=== PATIENT | female | born 1990 | race Caucasian/White ===

== ENCOUNTER 2020-04-06 13:16 | Emergency (ER) | payer MEDICAID, SELFPAY ==
[2020-04-06 13:17] VITALS: BP 138/76; PULSE 86; RESP 16; TEMP 37.1; O2SAT 97; BMI 26.6
[2020-04-06 13:26] VITALS: BP 138/76; PULSE 84; RESP 16; O2SAT 98
--- NOTE | 2020-04-06 13:36 | CT_ITS ---
WS: [id number] CT HEAD NONCONTRAST HISTORY: headache, weakness TECHNIQUE: Contiguous axial imaging performed through the brain in 2.5 mm imaging. Bone and soft tiss ue windows. Sagittal and coronal reformats reviewed. All CT scans at [facility] use at ast one of these dose optimization techniques: automated exposure control; mA and/or kV adjustment pe r patient size (includes targeted exams where dose is matched to clinical indication); or iterative r econstruction. DLP: 1167.36 mGy.cm COMPARISON: None available. No acute intracranial hemorrhage, midline shift or mass effect. No atrophy or prior infarcts or herniation. Nonspecific calcification in the LEFT temporal lobe may be from prior infection. Ventricles: Normal size with no hydrocephalus. Paranasal sinuses: Small amount of fluid in the sphenoid sinuses. Mastoid air cells: Well pneumatized. Calvarium and scalp: Skull is intact with no soft tissue edema or swelling. CT/CT head wo con* [id number] IMPRESSION: Mild sphenoid sinusitis. Otherwise negative for acute process.
--- NOTE | 2020-04-06 13:36 | ECG_ITS ---
[facility] Test Date: 2020-04-06 Pat Name: Niurka Pham Department: Room: Gender: Female Museum Informatics Specialist: : 1990 Requested By: Shaista Murillo Order Number: [id number] Alvaro MD: Joseph Baker M.D. Measurements Intervals [place] Rate: 78 P: 61 SC: 180 QRS: 10 QRSD: 112 T: 32 QT: 355 QTc: 406 Interpretive Statements SINUS RHYTHM INCOMPLETE RIGHT BUNDLE BRANCH BLOCK [90+ ms QRS DURATION, TERMINAL R IN V1/V2, 40+ ms S IN I/aVL/V4/V5/V6] No previous ECG available for comparison Electronically Signed On 04-06-2020 16:03:40 CDT by Joseph Baker M.D. [id number] f
--- NOTE | 2020-04-06 13:37 | W.ED.DIZZY ---
HPI - Dizziness General: Chief Complaint: Dizziness Stated Complaint: NUMBNESS IN L ARM/ WEAKNESS IN LEGS Time Seen by Provider: 04/06/20 13:20 History of Present Illness: HPI Narrative: This patient is a 29-year-old female who presents today with an episode of leg heaviness and numbness as well as arm and face numbness. She reports that she was just playing with her 2 young kids and suddenly felt like her legs got very heavy. She felt like they were too heavy to move. They also felt weak. She was able to walk but felt very unsteady. At the same time she developed some numbness and tingling in her left arm. She also had numbness and tingling on her face and neck area. She said she felt a little confused and she felt like when people were talking to her they were talking too fast and that what she was hearing and seeing did not match up. She denies seeing double. She denies actual dizziness or vertiginous symptoms. She does now have a headache which started after the symptoms resolved. She is seeing some floaters in her eyes. She is right-handed. Her symptoms started about 30 minutes ago and lasted about 1 hour ago and lasted about 30 minutes. They are gone now other than her headache. She denies any difficulty with speech or swallowing. She tried eating something to see if her blood sugar was just low. She said she had an episode about 8 months ago with the same type of leg weakness. She did not have the other symptoms. That episode lasted about 15 minutes and went away. She did not seek medical treatment for it. She is generally healthy. She had pulmonary stenosis as a child but thinks that her mother was told she would grow out of it. She has never seen an adult estimator jewelry regarding this. MD elicited complaint: difficulty walking Onset (ago): hour(s) (1) Timing: sudden onset Severity: moderate Description: other (Like things she was seeing or moving faster than think she could hear) History of similar symptoms: Yes Exacerbating factors: nothing Relieving factors: nothing Associated symptoms: Reports headache(s); Denies chest pain, diaphoresis, nausea or vomiting Review of Systems General: Reports: 10 or more systems reviewed and unremarkable except in HPI and below Const: Denies: diaphoresis Eyes: Denies: change in vision ENMT: Denies: odynophagia Card: Denies: chest pain Resp: Denies: dyspnea, productive cough or non-productive cough GI: Denies: nausea or vomiting : Denies: flank pain or difficulty voiding Musc: Denies: neck pain or back pain Skin/Breast: Denies: rash Neuro: Reports: headache(s) Ector/Lymph: Denies: easy bruising or easy bleeding [facility] Female Reproductive History: Date of last menstrual period: 03/30/20 Physical Exam Const: COMMON NORMALS: no acute distress, patient oriented x3, no limitations and alert GENERAL APPEARANCE: cooperative and comfortable HENMT: HEAD & SCALP: normal to inspection FACE & SINUS: normal facial exam Eye: GENERAL EYE: appearance normal, both eyes and all related structures Neck/C-Spine: COMMON NORMALS: supple, no meningeal signs and no JVD Chest: COMMONS NORMALS: normal inspection of the chest Resp: COMMON NORMALS: normal respiratory effort, No use of accessory muscles and clear to auscultation bilaterally AUSCULTATION: clear to auscultation bilaterally Cardio: COMMON NORMALS: no JVD, regular rate, regular rhythm and No murmurs present (Cardio) RATE: regular rate RHYTHM: regular rhythm GI: COMMON NORMALS: Normal to inspection, nondistended, normoactive bowel sounds present, Soft to palpation and non-tender INSPECTION: Yes normal to inspection AUSCULTATION: Yes normoactive bowel sounds PALPATION: Yes Soft to palpation Back/Pelvis: COMMON NORMALS: thoracic and lumbar spine normal to inspection Extremity: COMMON NORMALS: normal to inspection Neuro: COMMON NORMALS: patient oriented x3, moves all extremities, no focal motor deficits, no sensory deficits noted, deep tendon reflexes 2+ bilaterally and gait normal SENSORIUM/ORIENTATION: Yes alert MENINGEAL SIGNS: Yes no meningeal signs CRANIAL NERVES: Yes CN normal except as noted SPEECH: speech normal GAIT: Yes Normal gait present SENSORY EXAM: Yes extremities (proximal left upper arm slightly decreased) Psych: COMMON NORMALS: mental status grossly normal, cooperative and normal affect Skin: COMMON NORMALS: no rashes or lesions noted and turgor normal GENERAL SKIN EXAM: no rashes or lesions noted and turgor normal Course ED course: Patient symptoms resolved in the ED. We discussed some of the less likely diagnoses including complex migraine, atypical seizures, multiple sclerosis. I reassured her that I do not see anything at all that would suggest these diagnoses however I definitely want her to see a neurologist to get a more thorough work-up and evaluation. She understands and will comply. She will return if she has any worsening of her symptoms. Vital Signs: Vital signs: Vital Signs Temperature 97.6 F 04/06/20 16:03 Pulse Rate 52 L 04/06/20 16:03 Respiratory Rate 18 04/06/20 16:03 Blood Pressure 116/67 04/06/20 16:03 Pulse Oximetry 99 04/06/20 16:03 MDM - Dizziness Lab Data: Labs: Lab Results 04/06/20 04/06/20 04/06/20 Range/Units 13:43 13:43 14:09 WBC 10.8 H (4.0-10.0) 10^3/ uL RBC 4.61 (4.1-5.3) 10^6/u L Hgb 12.8 (11.5-15.3) g/dL Hct 40.5 (37.0-47.0) % MCV 87.9 (81-99) fL MCH 27.8 L (28.0-34.0) pg MCHC 31.6 (30.0-36.0) g/dL RDW 15.3 H (12.1-15.1) % Plt Count 283 (130-400) 10^3/c mm MPV 10.6 H (7.4-10.4) fL Neut % (Auto) 74.9 % Lymph % (Auto) 18.3 % [place]in[place] % (Auto) 5.3 % Eos % (Auto) 1.1 % Baso % (Auto) 0.2 % Neut # (Auto) 8.08 H (1.8-7.7) 10^3/u L Lymph # (Auto) 2.0 (0.8-4.8) 10^3/u L [place]in[place] # (Auto) 0.6 (0.2-0.9) 10^3/u L Eos # (Auto) 0.1 (0.0-0.8) 10^3/u L Baso # (Auto) 0.0 (0.0-0.1) 10^3/u L Nucleated RBC % (a uto) 0 % Nucleated RBCs # 0.0 /100WBC Sodium (136-145) mmol/L Potassium (3.5-5.1) mmol/L Chloride (98-107) mmol/L Carbon Dioxide (22-29) mmol/L Anion Gap (5-19) BUN (6-20) mg/dL Creatinine (0.5-0.9) mg/dL GFR Calculation (90-130) mL/min Glucose (65-115) mg/dL Calculated Osmolal ity (285-295) mOsm/k g Calcium (8.5-10.5) mg/dL Magnesium (1.7-2.3) mg/dL Total Bilirubin (0.15-1.2) mg/dL AST (0-32) U/L ALT (0-33) U/L Alkaline Phosphata se (35-105) IU/L Total Protein (6.6-8.7) g/dL Albumin (3.5-5.2) g/dL Globulin (1.3-4.6) g/dL TSH (0.27-4.20) uIU/ mL HCG, Qual Negative (Negative) Urine Color Straw (Yellow) Urine Appearance Clear (CLEAR) Urine pH 6 (5-7) Ur Specific Gravit y 1.005 (1.005-1.030) Urine Protein Neg (Negative) Urine Glucose (UA) Norm (Normal) Urine Ketones Negative (Negative) Urine Blood Neg (Negative) Urine Nitrate Negative (Negative) Urine Bilirubin Neg (NEGATIVE) Urine Urobilinogen Norm (Negative) mg/dL Ur Leukocyte Nel ase Negative (Negative) 04/06/20 Range/Units 14:09 WBC (4.0-10.0) 10^3/ uL RBC (4.1-5.3) 10^6/u L Hgb (11.5-15.3) g/dL Hct (37.0-47.0) % MCV (81-99) fL MCH (28.0-34.0) pg MCHC (30.0-36.0) g/dL RDW (12.1-15.1) % Plt Count (130-400) 10^3/c mm MPV (7.4-10.4) fL Neut % (Auto) % Lymph % (Auto) % Seminole % (Auto) % Eos % (Auto) % Baso % (Auto) % Neut # (Auto) (1.8-7.7) 10^3/u L Lymph # (Auto) (0.8-4.8) 10^3/u L Seminole # (Auto) (0.2-0.9) 10^3/u L Eos # (Auto) (0.0-0.8) 10^3/u L Baso # (Auto) (0.0-0.1) 10^3/u L Nucleated RBC % (a uto) % Nucleated RBCs # /100WBC Sodium 141 (136-145) mmol/L Potassium 4.1 (3.5-5.1) mmol/L Chloride 108 H (98-107) mmol/L Carbon Dioxide 26 (22-29) mmol/L Anion Gap 11.1 (5-19) BUN 7 (6-20) mg/dL Creatinine 0.7 (0.5-0.9) mg/dL GFR Calculation 98.9 (90-130) mL/min Glucose 98 (65-115) mg/dL Calculated Osmolal ity 288 (285-295) mOsm/k g Calcium 9.0 (8.5-10.5) mg/dL Magnesium 2.2 (1.7-2.3) mg/dL Total Bilirubin 0.2 (0.15-1.2) mg/dL AST 14 (0-32) U/L ALT 9 (0-33) U/L Alkaline Phosphata se 72 (35-105) IU/L Total Protein 7.1 (6.6-8.7) g/dL Albumin 4.4 (3.5-5.2) g/dL Globulin 2.7 (1.3-4.6) g/dL TSH 2.42 (0.27-4.20) uIU/ mL HCG, Qual (Negative) Urine Color (Yellow) Urine Appearance (CLEAR) Urine pH (5-7) Ur Specific Gravit y (1.005-1.030) Urine Protein (Negative) Urine Glucose (UA) (Normal) Urine Ketones (Negative) Urine Blood (Negative) Urine Nitrate (Negative) Urine Bilirubin (NEGATIVE) Urine Urobilinogen (Negative) mg/dL Ur Leukocyte Nel ase (Negative) Discharge Plan Discharge Patient Disposition: Home Clinical Impression: Weakness of both legs, Numbness and tingling in left arm Headache Qualifiers: Headache type: unspecified Headache chronicity pattern: acute headache Intractability: not intractable Qualified Code(s): R51 - Headache Condition: Stable Prescriptions: No Action No Known Home Medications RF: 0 Discharge Orders: Discharge Order (Routine); Ordered 04/06/20 Ordered By: Shaista Perdue Referrals: Mandi Clark MD [Physician] - 3 weeks (eval episodes of leg weakness and confusion) Kaylene Rocha, BOLTING MACHINE OPERATOR-C [Primary Care Provider] - Discharge Diet: Usual diet Discharge Activity: Resume usual activity Patient Instructions: Headache - Migraine (Adult) Activity Restrictions/Additional Instructions: Resume normal activities but use caution in any activity that would put you or or those around you in danger if you were to have an episode like you had today. Examples of this might be driving. Follow-up with a neurologist within the next several weeks for further and more detailed evaluation of your symptoms. Return to the ED if symptoms occur and do not resolve within 15 or 30 minutes. Discharge Date/Time: 04/06/20 16:17 Coding Level of Care Code ED Graduate Assistant for Zain Fwroya Exam Comprehensive
[2020-04-06 13:44] LABS: Add Urine Microscopic? NO
[2020-04-06 13:50] LABS: Bilirubin Urine Neg (NEGATIVE); Blood Urine Neg (Negative); Glucose Urine UA Norm (Normal); Ketones Urine Negative (Negative); Leukocyte Esterase Urine Negative (Negative); Nitrate Urine Negative (Negative); Protein Urine Neg (Negative); Specific Gravity, Urine 1.005 (1.005-1.030); Urine Appearance Clear (CLEAR); Urine Color Straw (Yellow); Urobilinogen Urine Norm (Negative); pH Urine 6 (5-7)
[2020-04-06 13:52] LABS: HCG Qualitative Urine. Negative (Negative)
[2020-04-06 14:12] VITALS: BP 128/63; PULSE 75; RESP 18; TEMP 37; O2SAT 98
[2020-04-06 14:14] LABS: Basophils % 0.2 %; Eosinophils # 0.1 10^3/uL (0.0-0.8); Eosinophils % 1.1 %; Hematocrit 40.5 % (37.0-47.0); Hemoglobin 12.8 g/dL (11.5-15.3); Lymphocytes % 18.3 %; Mean Corpuscular HGB Conc 31.6 g/dL (30.0-36.0); Mean Corpuscular Hemoglobin 27.8 pg (28.0-34.0); Mean Corpuscular Volume 87.9 fL (81-99); Mean Platelet Volume 10.6 fL (7.4-10.4); Monocytes # 0.6 10^3/uL (0.2-0.9); Monocytes % 5.3 %; Neutrophils # 8.08 10^3/uL (1.8-7.7); Neutrophils % 74.9 %; Nucleated Red Blood Cells % 0 %; Platelet Count 283 10^3/cmm (130-400); Red Blood Count 4.61 10^6/uL (4.1-5.3); Red Cell Distribution Width 15.3 % (12.1-15.1); White Blood Count 10.8 10^3/uL (4.0-10.0)
[2020-04-06 14:49] LABS: Alanine Aminotransferase 9 U/L (0-33); Albumin Level 4.4 g/dL (3.5-5.2); Alkaline Phosphatase 72 IU/L (35-105); Anion Gap 11.1 (5-19); Aspartate Amino Transferase 14 U/L (0-32); Blood Urea Nitrogen 7 mg/dL (6-20); Carbon Dioxide 26 mmol/L (22-29); Chloride 108 mmol/L (98-107); Creatinine Clr Calc Pharmacy 126.9315; Globulin 2.7 g/dL (1.3-4.6); Glomerular Filtration Rate 98.9 mL/min (90-130); Glucose 98 mg/dL (65-115); Magnesium 2.2 mg/dL (1.7-2.3); Osmolality Calculated 288 mOsm/kg (285-295); Potassium 4.1 mmol/L (3.5-5.1); Sodium 141 mmol/L (136-145); Thyroid Stimulating Hormone 2.42 uIU/mL (0.27-4.20); Total Bilirubin 0.2 mg/dL (0.15-1.2); Total Protein 7.1 g/dL (6.6-8.7)
[2020-04-06 16:03] VITALS: BP 116/67; PULSE 52; RESP 18; TEMP 36.4; O2SAT 99
--- NOTE | 2020-04-07 10:47 | DCPLANNER ---
stallion manager had message to schedule a follow up appointment for patient with Dr. Clark. stallion manager called the office of Dr. Clark, spoke with Corina, gave clinic patients information. stallion manager was told that patients information would be printed and reviewed. Clinic will call patient with appointment information.
--- NOTE | 2020-04-12 07:46 | DCPLANNER ---
Patient has a follow up appointment scheduled for , May 04, 2020 at 2:[address] Clark. Clinic will call patient with appointment information.
--- NOTE | 2020-05-05 13:40 | DCPLANNER ---
Patient had a follow up appointment scheduled for 05.04.[address] Clark - patient was rescheduled for a later date.
== END 2020-04-06 16:17 | disposition home or self-care (01) ==
PROVIDERS: Emergency Provider Emergency Medicine; PCP Nurse Practitioner
DX: R51 Headache (principal); R20.0 Anesthesia of skin; R53.1 Weakness
CPT/HCPCS: 12345; 36415; 70450; 80053; 81003; 81025; 83735; 84443; 85025; 93005; 99283

== ENCOUNTER → 2020-10-13 15:31 | Outpatient (BNVA) | payer MEDICAID, SELFPAY | PROVIDERS: PCP Nurse Practitioner; Visit Provider Family Medicine | DX: N92.6 Irregular menstruation, unspecified (principal); N93.9 Abnormal uterine and vaginal bleeding, unspecified | CPT/HCPCS: 81000; 81025 ==

== ENCOUNTER → 2020-10-18 14:55 | Outpatient (BNVA) | payer MEDICAID, SELFPAY | PROVIDERS: PCP Nurse Practitioner; Visit Provider Family Medicine | DX: N93.9 Abnormal uterine and vaginal bleeding, unspecified (principal); Z78.9 Other specified health status | CPT/HCPCS: 81025; 84702; 88175 ==

== ENCOUNTER → 2020-12-14 15:44 | Outpatient (BNVA) | payer MEDICAID, SELFPAY | PROVIDERS: PCP Nurse Practitioner Family; Visit Provider Nurse Practitioner Family | DX: Z11.3 Encounter for screening for infections with a predominantly sexual mode of transmission (principal) | CPT/HCPCS: 86592; 87491; 87530; 87591; 87661; 87806 ==

== ENCOUNTER → 2021-05-22 10:55 | Outpatient (BNVA) | payer MEDICAID, SELFPAY | PROVIDERS: PCP Nurse Practitioner Family; Visit Provider Nurse Practitioner Family | DX: E53.8 Deficiency of other specified B group vitamins (principal) | CPT/HCPCS: 82607 ==

== ENCOUNTER → 2021-07-18 11:27 | Outpatient (BNVA) | payer MEDICAID, SELFPAY | PROVIDERS: PCP Nurse Practitioner Family; Visit Provider Nurse Practitioner Family | DX: R20.2 Paresthesia of skin (principal) | CPT/HCPCS: 80053; 82306; 82607; 85025 ==

== ENCOUNTER → 2021-10-01 10:23 | Outpatient (BNVA) | payer MEDICAID, SELFPAY | PROVIDERS: PCP Nurse Practitioner Family; Visit Provider Nurse Practitioner Family | DX: R20.0 Anesthesia of skin (principal); R20.2 Paresthesia of skin; E53.8 Deficiency of other specified B group vitamins; E55.9 Vitamin D deficiency, unspecified; F41.9 Anxiety disorder, unspecified; F32.A Depression, unspecified | CPT/HCPCS: 80053; 82306; 82607; 85025 ==

== ENCOUNTER 2021-10-02 15:16 | Outpatient (CLI) | payer MEDICAID, SELFPAY ==
--- NOTE | 2021-10-02 15:32 | MR_ITS ---
WS: [id number] MRI BRAIN WITHOUT CONTRAST HISTORY: G43.109 - Migraine with aura, not intractable. COMPARISON: Noncontrast CT head 04/06/2020 TECHNIQUE: Diffusion imaging, multiplanar T1, T2 and FLAIR imaging obtained. No evidence for acute infarct or hemorrhage. Dozier-white matter differentiation is normal. Single tiny focus of increased signal in the RIGHT mcelroy radiata. Nonspecific and may be related to prior ische noah event. There are no large territory infarcts. No hemorrhage. No remote or acute infarcts are volume loss. Ventricles and extra-axial spaces are normal. No inferior displacement of cerebellar tonsils. The sella turcica and pituitary gland are unremarkabl e. Dural venous sinuses and northway of [place] demonstrate no abnormality on this unenhanced studies. Flow voids in the [place] are normal. Paranasal sinuses: Small amount of fluid in the RIGHT sphenoid sinus. Mastoid air cells: Normal. Calvarium and scalp: Intact. MR/MR head wo con* [id number] IMPRESSION: 1. No acute infarct or significant signal abnormalities within the brain. 2. No hemorrhage. 3. Small mucous retention cyst in the RIGHT sphenoid sinus.
== END 2021-10-02 15:17 | disposition home or self-care (01) ==
PROVIDERS: PCP Nurse Practitioner Family; Visit Provider Nurse Practitioner Family
DX: G43.109 Migraine with aura, not intractable, without status migrainosus (principal)
CPT/HCPCS: 70551; 80053; 80061; 82306; 82607; 83735; 84443; 85025

== ENCOUNTER → 2021-12-13 11:24 | Outpatient (BNVA) | payer MEDICAID, SELFPAY | PROVIDERS: PCP Nurse Practitioner Family; Referring Provider Nurse Practitioner Family; Visit Provider Specialist | DX: G43.119 Migraine with aura, intractable, without status migrainosus (principal); F41.9 Anxiety disorder, unspecified | CPT/HCPCS: 99204 ==

== ENCOUNTER → 2022-02-14 18:00 | Outpatient (BNVA) | payer MEDICAID, SELFPAY | PROVIDERS: PCP Nurse Practitioner Family; Visit Provider Nurse Practitioner Family | DX: F41.9 Anxiety disorder, unspecified (principal); F32.A Depression, unspecified; R20.2 Paresthesia of skin; G43.909 Migraine, unspecified, not intractable, without status migrainosus; E53.8 Deficiency of other specified B group vitamins; G43.109 Migraine with aura, not intractable, without status migrainosus; E55.9 Vitamin D deficiency, unspecified | CPT/HCPCS: 80053; 82306; 82607; 82672; 82679; 84144; 85025 ==

== ENCOUNTER 2022-04-02 21:15 | Emergency (ER) | payer MEDICAID, SELFPAY ==
[2022-04-02 21:25] VITALS: BP 126/79; PULSE 87; RESP 16; TEMP 37; O2SAT 95; BMI 29.0
--- NOTE | 2022-04-02 22:21 | XRR_ITS ---
PROCEDURE INFORMATION: Exam: XR Chest Exam date and time: 04/02/2022 10:25 PM Age: 31 years old Clinical indication: Angina; Additional info: Cp TECHNIQUE: Imaging protocol: Radiologic exam of the chest. Views: 1 view. COMPARISON: No relevant prior studies available. FINDINGS: Lungs: Unremarkable. No consolidation. Pleural spaces: Unremarkable. No pleural effusion. No pneumothorax. Heart/Mediastinum: Unremarkable. No cardiomegaly. Bones/joints: Unremarkable. XR/XR chest 1V portable [id number] IMPRESSION: No acute findings.
--- NOTE | 2022-04-02 22:22 | W.ED.HA ---
HPI - Headache General: Chief Complaint: Headache Stated Complaint: HEADACHE Time Seen by Provider: 04/02/22 21:58 Source: patient and EMS Mode of arrival: EMS Limitations: no limitations History of Present Illness: 31-year-old female who has a history of migraine with auras. States she started having a headache today it felt like a migraine states she started having some left-sided chest pain left side numbness states this was a little atypical from her typical migraine states she usually has right-sided numbness and was causing her some concern. States her headaches actually improved now 3 out of 10 she has no chest pain at this time either states that her left arm feels a little heavy but no longer has any numbness states she does have some photophobia phonophobia denies any vomiting or diarrhea. Denies any fevers or neck pain. Associated symptoms: Reports chest pain; Deny fever(s), nausea, rash or vomiting Review of Systems Const: Denies: fever(s), chills, body aches or change in appetite Eyes: Denies: blurry vision or eye discomfort ENMT: Denies: throat pain or dental pain Card: Reports: chest pain Resp: Denies: dyspnea GI: Denies: abdominal pain, nausea, vomiting or diarrhea : Denies: dysuria Musc: Denies: neck pain or back pain Skin/Breast: Denies: rash Neuro: Reports: headache(s) and numbness in extremities Psych: Denies: depression Ector/Lymph: Denies: easy bruising All/Imm: Denies: urticaria PFSH ED PFSH: Medical History Migraine with aura and without status migrainosus Family History Other CAD (coronary artery disease) Diabetes Hypertension Social History Smoking and tobacco status: never smoked Second hand smoke exposure: Yes Alcohol intake: never Caregiver/support person: Yes Lives independently: Yes Household members: spouse Marital status: Number of children: 2 service: No Current occupational status: unemployed History of recent travel: No Current gender identity: Female Female Reproductive History: Date of last menstrual period: 03/30/20 Physical Exam Const: COMMON NORMALS: no acute distress, patient oriented x3 and healthy appearing HENMT: COMMON NORMALS: normocephalic and atraumatic HEAD & SCALP: normocephalic and atraumatic Eye: COMMON NORMALS: Equal, round and reactive pupils present and EOMs intact bilaterally PUPIL: Yes Equal, round and reactive pupils present Neck/C-Spine: COMMON NORMALS: full ROM and supple Chest: COMMONS NORMALS: normal inspection of the chest and normal palpation of entire chest wall Resp: COMMON NORMALS: normal respiratory effort, No retractions, No use of accessory muscles and clear to auscultation bilaterally AUSCULTATION: clear to auscultation bilaterally Cardio: COMMON NORMALS: regular rate, regular rhythm and No murmurs present (Cardio) RATE: regular rate RHYTHM: regular rhythm GI: COMMON NORMALS: Normal to inspection, nondistended, normoactive bowel sounds present, Soft to palpation, non-tender and no masses PALPATION: Yes Soft to palpation Extremity: COMMON NORMALS: normal to inspection and full ROM Neuro: COMMON NORMALS: patient oriented x3, moves all extremities and no focal motor deficits Psych: COMMON NORMALS: mental status grossly normal, Normal thought process present and cooperative THOUGHT PROCESS: Normal thought process present Skin: COMMON NORMALS: no rashes or lesions noted and no wounds GENERAL SKIN EXAM: no rashes or lesions noted Course Vital Signs: Vital signs: Vital Signs Temperature 98.6 F 04/02/22 21:25 Pulse Rate 87 04/02/22 21:25 Respiratory Rate 16 04/02/22 21:25 Blood Pressure 126/79 04/02/22 21:25 Pulse Oximetry 95 04/02/22 21:25 Oxygen Delivery Me thod 04/02/22 21:25 MDM - Headache Medical Decision Making Patient presents with migraine with aura likely causing her paresthesias she is pain-free currently EKG x-ray are normal no signs of any cardiac abnormalities. She is stable for discharge she is to follow-up with PCP and return if worsening she understands agrees to plan. Lab Data Radiology Impressions Chest X-Ray 04/02/22 22:21 IMPRESSION: No acute findings. EKG Data EKG 1: I personally reviewed and interpreted this EKG as follows: EKG interpretation date: 04/02/22 EKG interpretation time: 21:27 Interpretation: nsr hr [address] or t wave abnormalities qrs 111 qtc 381 Discharge Plan Discharge Patient Disposition: Home Clinical Impression: Migraine with aura and without status migrainosus Condition: Stable Prescriptions: No Action acetaminophen [Tylenol] 325 mg tablet 325 mg PO QID PRN sumatriptan succinate [Imitrex] 100 mg tablet See Rx Instructions PO .COMPLEX Qty: 10 2RF Rx Instructions: take 1 tab at onset of headache; if no relief, may repeat 1 tab after at least 2 hrs; max = 2 tabs/24 hrs PO ondansetron HCl [Zofran] 4 mg tablet 4 mg PO Q6H PRN (Reason: nausea and vomiting) Qty: 20 1RF hydroxyzine HCl 25 mg tablet See Rx Instructions PO TID PRN (Reason: anxiety) Qty: 90 0RF Rx Instructions: take 1-2 tablets PO three times daily PRN; loratadine [Claritin] 10 mg tablet 10 mg PO DAILY 90 Days Qty: 90 3RF fexofenadine-pseudoephedrine [Agueda-D 12 Hour] 60-120 mg tablet extended release 12 hr 1 tab PO Q12H PRN (Reason: allergy symptoms) Qty: 20 0RF frovatriptan 2.5 mg tablet See Rx Instructions PO .COMPLEX Qty: 14 0RF Rx Instructions: take 1 tab at onset of headache; if no relief, may repeat 1 tab after at least 2 hrs; max = 2 tabs/24 hrs PO venlafaxine 75 mg capsule,extended release 24hr 75 mg PO DAILY Qty: 30 3RF cyanocobalamin (vitamin B-12) 1,000 mcg/mL solution 1,000 mcg IM .monthly 30 Days Qty: 1 11RF Discharge Orders: Discharge ED (Routine); Ordered 04/02/22 Ordered By: Waldemar Wang Referrals: Juju Curry FNP [Primary Care Provider] - Discharge Diet: Advance as tolerated Discharge Activity: Resume usual activity Patient Instructions: Headache - Migraine (Adult) Coding Level of Care Code ED Patient Placement Coordinator for Marianag Fwd Exam Comprehensive
[2022-04-02] MEDS: diphenhydrAMINE 50 mg/mL SDV 1mL IM (22:38)
[2022-04-02] MEDS: metoclopramide 5 mg/mL SDV 2 mL 10 MG IM (22:38)
[2022-04-02 23:10] VITALS: BP 143/81; PULSE 64; RESP 16; O2SAT 95
== END 2022-04-02 23:10 | disposition home or self-care (01) ==
PROVIDERS: Emergency Provider Emergency Medicine; PCP Nurse Practitioner Family
DX: G43.109 Migraine with aura, not intractable, without status migrainosus (principal); Z77.22 Contact with and (suspected) exposure to environmental tobacco smoke (acute) (chronic)
CPT/HCPCS: 71045; 96372; 99284; J1200; J2765

== ENCOUNTER → 2022-05-07 10:40 | Outpatient (BNVA) | payer MEDICAID, SELFPAY | PROVIDERS: PCP Nurse Practitioner Family; Visit Provider Nurse Practitioner Family | DX: R53.1 Weakness (principal); R53.83 Other fatigue; R00.2 Palpitations; R42 Dizziness and giddiness; R73.9 Hyperglycemia, unspecified; R20.2 Paresthesia of skin; F17.200 Nicotine dependence, unspecified, uncomplicated | CPT/HCPCS: 80053; 83036; 84443 ==

== ENCOUNTER → 2022-06-05 14:49 | Outpatient (BNVA) | payer MEDICAID, SELFPAY | PROVIDERS: PCP Nurse Practitioner Family; Visit Provider Nurse Practitioner Family | DX: R53.83 Other fatigue (principal); R53.1 Weakness; N91.1 Secondary amenorrhea; G43.109 Migraine with aura, not intractable, without status migrainosus; R42 Dizziness and giddiness | CPT/HCPCS: 84702 ==

== ENCOUNTER → 2022-06-06 10:49 | Outpatient (BNVA) | payer MEDICAID, SELFPAY | PROVIDERS: PCP Nurse Practitioner Family; Visit Provider Nurse Practitioner Family | DX: R53.83 Other fatigue (principal); R53.1 Weakness; N91.1 Secondary amenorrhea; G43.109 Migraine with aura, not intractable, without status migrainosus; R42 Dizziness and giddiness | CPT/HCPCS: 82679; 85651; 86038; 86140; 86664; 86665 ==

== ENCOUNTER → 2022-07-12 13:17 | Outpatient (BNVA) | payer MEDICAID, SELFPAY | PROVIDERS: PCP Nurse Practitioner Family; Visit Provider Nurse Practitioner Family | DX: R19.8 Other specified symptoms and signs involving the digestive system and abdomen (principal); Z09 Encounter for follow-up examination after completed treatment for conditions other than malignant neoplasm; R42 Dizziness and giddiness; J02.9 Acute pharyngitis, unspecified; J32.9 Chronic sinusitis, unspecified | CPT/HCPCS: 87177; 87209; 87506 ==

== ENCOUNTER → 2022-10-02 14:46 | Outpatient (BNVA) | payer MEDICAID, SELFPAY | PROVIDERS: PCP Nurse Practitioner Family; Visit Provider Internal Medicine | DX: R00.2 Palpitations (principal); R55 Syncope and collapse | CPT/HCPCS: 93270 ==

== ENCOUNTER 2022-11-06 10:26 | Outpatient (CLI) | payer MEDICAID, SELFPAY ==
--- NOTE | 2022-11-06 10:30 | USCV_ITS ---
Niurka Cordova Age: 32 Gender: F : 1990 Exam Date: 11/06/2022 11:23 Ordering Phys: Joseph Baker M.D ([email or web address]) Technologist: Exam Location: [facility] [place] Indication: sob chest pain BP: 140 / 84 HR: 71 Rhythm: Sinus Technical Quality: Adequate MEASUREMENTS (Male / Female) Normal Values 2D ECHO LV Diastolic Diameter PLAX 3.9 cm 4.2 - 5.9 / 3.9 - 5.3 cm LV Systolic Diameter PLAX 2.3 cm IVS Diastolic Thickness 1.0 cm 0.6 - 1.0 / 0.6 - 0.9 cm IVS Systolic Thickness 1.7 cm LVPW Diastolic Thickness 1.0 cm 0.6 - 1.0 / 0.6 - 0.9 cm LVPW Systolic Thickness 1.5 cm LVOT Diameter 1.9 cm LV Ejection Fraction 2D Teich 74.7 % LV Ejection Fraction MOD 2C 61.1 % LV Ejection Fraction 2C AL 58.3 % LA Diameter 3.1 cm Aorta at Sinotubular Diameter 2.3 cm IVC Diameter 1.2 cm M-MODE Aortic Annulus Diameter 2.6 cm LA Ao Ratio MM 1.3 MV E Point Septal Separation 1.4 cm DOPPLER AV Peak Velocity 155.0 cm/s LVOT Peak Velocity 121.0 cm/s AV Area Cont Eq vti 2.1 cm squared AV Area Cont Eq pk 2.2 cm squared MV Area PHT 6.5 cm squared Mitral E to A Ratio 1.6 MV E' Velocity 60.0 cm/s Mitral E to MV E' Ratio 5.6 Mitral E to LV E' Lateral Ratio 5.1 Mitral E to LV E' Septal Ratio 6.2 TR Peak Velocity 142.7 cm/s TR Peak Gradient 8.1 mmHg TV Peak E Velocity 92.0 cm/s Right Atrial Pressure 3.0 mmHg Pulmonary Artery Systolic Pressu 11.1 mmHg RV Acceleration Time 0.1 s FINDINGS Left Ventricle Left ventricle is normal in size. LV systolic function is normal with EF of 60 to 65%. No regional wall motion abnormalities are seen. Diastolic function is normal Right Ventricle Normal in size and function Right Atrium Normal in size Left Atrium Normal in size Mitral Valve Structurally normal mitral valve. Aortic Valve Structurally normal aortic valve. No stenosis. Trace aortic regurgitation. Tricuspid Valve Trace tricuspid regurgitation. Insufficient TR jet to calculate RVSP. Pulmonic Valve Not well-visualized. Pericardium Normal Aorta Normal in size IVC Appears to be normal CONCLUSIONS LV systolic function is normal with EF of 60 to 65%. Diastolic function is normal. Trace aortic regurgitation Trace tricuspid regurgitation No comparison studies are available Joseph Baker MD (Electronically Signed) Final Date: 20 November 2022 14:49 S
== END 2022-11-06 10:27 | disposition home or self-care (01) ==
PROVIDERS: PCP Nurse Practitioner Family; Referring Provider Specialist; Visit Provider Internal Medicine
DX: R06.02 Shortness of breath (principal); R00.2 Palpitations; R42 Dizziness and giddiness
CPT/HCPCS: 93306; 99204

== ENCOUNTER → 2023-02-28 11:16 | Outpatient (BNVA) | payer MEDICAID, SELFPAY | PROVIDERS: PCP Nurse Practitioner Family; Visit Provider Nurse Practitioner Family | DX: E53.8 Deficiency of other specified B group vitamins (principal); E55.9 Vitamin D deficiency, unspecified; F41.9 Anxiety disorder, unspecified; F32.A Depression, unspecified; R53.1 Weakness; R53.83 Other fatigue; R20.2 Paresthesia of skin; B07.9 Viral wart, unspecified | CPT/HCPCS: 80053; 82306; 82607; 82746; 84443 ==

== ENCOUNTER 2023-03-17 10:33 | Outpatient (CLI) | payer MEDICAID, SELFPAY ==
--- NOTE | 2023-03-17 10:39 | MM_ITS ---
WS: [id number] DIAGNOSTIC BILATERAL DIGITAL BREAST TOMOSYNTHESIS MAMMOGRAPHY WITH CAD Left breast ultrasound, limited. HISTORY: LT BR LUMP COMPARISON: None available. TECHNIQUE: Bilateral craniocaudad, mediolateral oblique, and mediolateral views are submitted with to mosynthesis and SM. Spot compression left CC and MLO. Computer aided detection utilized. Breast composition: The breasts are extremely dense, which lowers the sensitivity of mammography. Sobeida y dense fibroglandular breast tissue. Ovoid mass of increased density in the upper outer quadrant of the left breast corresponds to the palpable abnormality. Mass measures 2.2 x 2.7 cm. No distortion. N o calcifications. Left breast ultrasound, limited. There is a well-circumscribed solid mass which is slightly hypoechoic throughout measuring 2.4 x 2.2 x 1.5 cm. Mild peripheral vascularity is increased. IMPRESSION: MM/[place] [id number] BI-RADS: 4-Suspicious Finding-Biopsy Should Be Considered FOLLOW UP: Biopsy Recommended Ultrasound-guided biopsy recommended left breast mass at 2:00. Differential inc ludes neoplasm and benign fibroadenoma. Notified Meghan Barton NP at 03/17/2023 11:44 AM.
== END 2023-03-17 10:34 | disposition home or self-care (01) ==
PROVIDERS: PCP Nurse Practitioner Family; Visit Provider Nurse Practitioner Family
DX: N63.21 Unspecified lump in the left breast, upper outer quadrant (principal)
CPT/HCPCS: 76642; 77062; G0279

== ENCOUNTER 2023-04-02 10:54 | Outpatient (CLI) | payer MEDICAID, SELFPAY ==
--- NOTE | 2023-04-02 10:58 | US_ITS ---
WS: [id number] ULTRASOUND-GUIDED LEFT BREAST BIOPSY CLINICAL INFORMATION: LUMP IN L BREAST COMPARISON: 03/17/2023 FINDINGS: The procedure including risks, benefits, and complications were discussed with the patient who agreed to proceed. Using sterile technique patient was prepped and draped in the usual sterile fashion. Aft er 1% lidocaine utilizing real-time ultrasound guidance four 14-gauge cores were obtained of the LEF T breast lesion at the 2 o'clock position. No biopsy clip was placed. No immediate complications. Pathology demonstrates: Benign ductal and stromal proliferation. There is no evidence of atypical ductal or lobular hyperplas ia or a neoplastic process. IMPRESSION: 1. Uncomplicated ultrasound-guided LEFT breast biopsy. 2. The pathology demonstrates benign fibroadenoma US/[place] [id number] BI-RADS: 2-Benign FOLLOW UP: 1 Year Follow-up Recommend 1 year follow-up LEFT breast diagnostic mammography and ultrasound to confirm stability
== END 2023-04-02 10:55 | disposition home or self-care (01) ==
PROVIDERS: PCP Nurse Practitioner Family; Visit Provider Nurse Practitioner Family
DX: D24.2 Benign neoplasm of left breast (principal)
CPT/HCPCS: 19083; 88305

== ENCOUNTER → 2023-05-20 16:44 | Outpatient (BNVA) | payer MEDICAID, SELFPAY | PROVIDERS: PCP Nurse Practitioner Family; Visit Provider Nurse Practitioner Family | DX: G43.909 Migraine, unspecified, not intractable, without status migrainosus (principal); M62.838 Other muscle spasm; E55.9 Vitamin D deficiency, unspecified; E53.8 Deficiency of other specified B group vitamins | CPT/HCPCS: 80053; 82306; 82607; 82746 ==

== ENCOUNTER → 2023-07-02 11:13 | Outpatient (BNVA) | payer MEDICAID, SELFPAY | PROVIDERS: PCP Nurse Practitioner Family; Visit Provider Nurse Practitioner Family | DX: L95.0 Livedoid vasculitis (principal); G43.119 Migraine with aura, intractable, without status migrainosus; Z79.899 Other long term (current) drug therapy | CPT/HCPCS: 80053; 85651; 86140; 86160; 86162; 86235; 86255; 86376; 86431 ==

== ENCOUNTER → 2023-09-03 13:18 | Outpatient (BNVA) | payer MEDICAID, SELFPAY | PROVIDERS: PCP Nurse Practitioner Family; Visit Provider Nurse Practitioner Family | DX: M25.50 Pain in unspecified joint (principal); G43.109 Migraine with aura, not intractable, without status migrainosus; Z79.899 Other long term (current) drug therapy | CPT/HCPCS: 85651; 86140; 86160; 86162; 86200; 86235; 86255; 86376; 86431 ==

== ENCOUNTER → 2023-11-14 10:09 | Outpatient (BNVA) | payer MEDICAID, SELFPAY | PROVIDERS: PCP Nurse Practitioner Family; Visit Provider Nurse Practitioner Family | DX: F41.9 Anxiety disorder, unspecified; F32.A Depression, unspecified | CPT/HCPCS: 80053; 80061; 85025 ==

== ENCOUNTER → 2023-12-19 08:38 | Outpatient (BNVA) | payer MEDICAID, SELFPAY | PROVIDERS: PCP Nurse Practitioner Family; Visit Provider Family Medicine | DX: N39.0 Urinary tract infection, site not specified (principal) | CPT/HCPCS: 81000 ==

== ENCOUNTER → 2024-04-01 10:57 | Outpatient (BNVA) | payer MEDICAID, SELFPAY | PROVIDERS: PCP Nurse Practitioner Family; Visit Provider Internal Medicine Rheumatology | DX: Z79.899 Other long term (current) drug therapy (principal); M19.90 Unspecified osteoarthritis, unspecified site; M25.551 Pain in right hip | CPT/HCPCS: 36415; 72040; 73502; 80076; 82306; 82565; 82607; 82746; 84439; 84443; 85025; 85651; 86140 ==

== ENCOUNTER 2024-04-19 15:44 | Outpatient (CLI) | payer MEDICAID, SELFPAY ==
--- NOTE | 2024-04-19 15:49 | USR_ITS ---
PROCEDURE INFORMATION: Exam: US Pelvis, Complete, Non-Obstetric Exam date and time: 04/19/2024 4:07 PM Age: 33 years old Clinical indication: Retention of urine; Additional info: Difficulty voiding TECHNIQUE: Imaging protocol: Transabdominal pelvic nonobstetric ultrasound. Complete exam. Real time ultrasound with image documentation. The patient declined the endovaginal portion of the exam. COMPARISON: CR XR hip RT 2-3V wo/w pel* [id number] 04/01/2024 11:08 AM FINDINGS: Uterus: Uterus is normal. Endometrial stripe is normal. The combined endometrial thickness measures 7 mm. Right ovary/adnexa: Ovary is normal. No mass. Normal-appearing right ovarian follicle Normal blood flow. Left ovary/adnexa: Ovary is normal. No mass. Normal blood flow. Normal-appearing left ovarian follicle Intraperitoneal space: No intraperitoneal fluid. Urinary bladder: Normal. No bladder wall thickening or over distension of the urinary bladder. There are normal-appearing bilateral urinary jets within the bladder. US/US pelvic complete* [id number] IMPRESSION: No acute findings.
== END 2024-04-19 15:45 | disposition home or self-care (01) ==
LOC: RAD 15:44
PROVIDERS: PCP Nurse Practitioner Family; Visit Provider Nurse Practitioner Family
DX: R39.198 Other difficulties with micturition (principal)
CPT/HCPCS: 76856

== ENCOUNTER 2024-11-16 18:11 | Emergency (ER) | payer MEDICAID, SELFPAY ==
[2024-11-16 18:15] VITALS: BP 149/80; PULSE 77; RESP 14; TEMP 36.7; O2SAT 96; BMI 22.6
--- NOTE | 2024-11-16 18:50 | USR_ITS ---
PROCEDURE INFORMATION: Exam: US Pelvis, Transvaginal, Non-Obstetric Exam date and time: 11/16/2024 7:25 PM Age: 34 years old Clinical indication: Other: Vaginal bleeding since onset of last menses on 11/05/2024; G2-p2-a0-l2 has had regular menses up until this month, which began on 11/05/2024 but has not stopped. TECHNIQUE: Imaging protocol: Real-time transvaginal pelvic (non-obstetric) ultrasound with image documentation. Transvaginal imaging was used for better evaluation of the endometrium, adnexa, and/or cervix. COMPARISON: US pelvic complete* [id number] 04/19/2024 4:07 PM FINDINGS: Uterus: The uterus measures 8.2 x 6.1 x 5.0 cm. Endometrial thickness is 5 mm. There are intramural fundal posterior fibroids. They measured 2.7 x 2.4 x 1.5 and 2.1 x 2.5 x 1.2 cm each. Right ovary/adnexa: There is a follicular cyst in the right ovary measuring 1.1 cm. Preserved flow to the right ovary. Left ovary/adnexa: Preserved flow to the left ovary. Urinary bladder: Urinary bladder is limited. Intraperitoneal space: There is no free fluid in the pelvic cul-de-sac. US/US transvaginal [id number] IMPRESSION: As above.
--- NOTE | 2024-11-16 19:24 | ED_ITS ---
HPI - Female Genitourinary 2 General: Chief complaint: Vaginal Bleeding Stated complaint: vaginal bleeding for 2 weeks, weakness, dizzy Time Seen by Provider: 11/16/24 18:14 Source: patient Mode of arrival: ambulatory Limitations: no limitations History of Present Illness: Patient is a 34-year-old female who presents the emergency department complaining of vaginal bleeding for 2 weeks. States that she began her normal menstruation cycle on the fourth of this month, however has had continued bleeding and has started to develop dizziness and lightheadedness, as well as a headache. States that she has not been using tampons or pads, just notices that there is blood every time she wipes after urinating. She is not reporting any abdominal pain but does state that she feels bloated. Denies possibility of as she states her only partner is her who has history of vasectomy. Denies any vaginal discharge or odor. Does note that bleeding has alternated between pinkish-red blood to bright red blood with wiping. Denies any pertinent past gynecological history, states that her last Pap smear was normal. Vitals are unremarkable at this time. MD elicited complaint: vaginal bleeding Onset (ago): week(s) Severity: mild Consistency: constant Vaginal discharge: none Vaginal bleeding: moderate and bright red Exacerbating factors: none Relieving factors: none Associated symptoms: Reports headache(s); Deny abdominal pain or nausea Related Data Previous Rx's ?Medication ?Instructions ?Recorded propranolol 10 mg tablet 10 mg PO BID 30 days #60 tab s 03/18/24 tamsulosin 0.4 mg capsule (Flomax) 0.4 mg PO DAILY #30 caps 03/18/24 cholecalciferol (vitamin D3) 50 50 mcg PO DAILY 90 day s #90 caps 04/16/24 mcg (2,000 unit) capsule fexofenadine 60 mg-pseudoephedrine 1 tab PO Q12H PRN n ja congestion 04/16/24 ER 120 mg tablet,ext.release,12 hr #20 tabs (Agueda-D 12 Hour) folic acid 1 mg tablet 1 mg PO DAILY 90 days #90 ta bs 04/16/24 cefdinir 300 mg capsule 300 mg PO BID 7 days #14 cap s 11/16/24 Allergies Allergy/AdvReac Type Severity Reaction Status Date / Time No Known Allergies Allergy Verified 11/16/24 18:21 Review of Systems 2 General: Reports: 10 or more systems reviewed and unremarkable except in HPI and below Const: Denies: fever(s), chills, change in appetite, change in weight or diaphoresis ENMT: Denies: throat pain or hoarseness Card: Reports: lightheadedness; Denies: chest pain or palpitations Resp: Denies: dyspnea, productive cough or wheezing GI: Reports: bloating; Denies: abdominal pain, nausea, vomiting, diarrhea, constipation, change in stool character or hematochezia : Reports: vaginal bleeding; Denies: flank pain, difficulty voiding, dysuria, urinary frequency or urinary urgency Musc: Denies: neck pain or back pain Skin/Breast: Denies: rash or new lesions Neuro: Reports: headache(s) and dizziness PFSH ED 2 PFSH: Medical History H/O pulmonary artery stenosis Positive ROMEL (antinuclear antibody) Hip pain, right Migraine with aura and without status migrainosus Surgical History History of dental surgery Family History Other Diabetes Hypertension Denies family history of Colon cancer Ovarian cancer Heart disease Hypercholesteremia Breast cancer Uterine cancer Thyroid disease Stroke Social History Smoking and tobacco/nicotine status: never used tobacco/nicotine Alcohol intake: never Substance/Drug Use: never Physical Exam 2 Const: COMMON NORMALS: no acute distress, average body habitus, patient oriented x3, no limitations, healthy appearing, alert and well nourished G ENERAL APPEARANCE: cooperative and comfortable ORIENTATION/CONSCIOUSNESS: Yes awake HENMT: COMMON NORMALS: normocephalic, atraumatic, hearing grossly normal bilaterally, external ears normal, Normal external nose present, Normal nasal mucous membranes and turbinates present and moist oral mucous membranes HEAD & SCALP: normocephalic and atraumatic NOSE: Normal external nose present and Normal nasal mucous membranes and turbinates present EXTERNAL EAR: Yes external ears normal Eye: COMMON NORMALS: Equal, round and reactive pupils present, EOMs intact bilaterally, conjunctivae normal and normal visual romero by confrontation C ONJUNCTIVA: Yes conjunctivae normal PUPIL: Yes Equal, round and reactive pupils present Neck/C-Spine: COMMON NORMALS: full ROM, supple, no meningeal signs and no JVD Resp: COMMON NORMALS: normal respiratory effort, No retractions, No use of accessory muscles and clear to auscultation bilaterally AUSCULTATION: clear to auscultation bilaterally, no crackles, no rales, no rhonchi and no wheezes Cardio: COMMON NORMALS: no JVD, regular rate, regular rhythm, S1 normal heart sound present, S2 normal heart sound present, No gallops present (Cardio), No clicks present (Cardio), No murmurs present (Cardio), No rub (Cardio) and Peripheral pulses 2+ throughout RATE: regular rate RHYTHM: regular rhythm HEART SOUNDS: S1 normal heart sound present and S2 normal heart sound present PERIPHERAL PULSES: Peripheral pulses 2+ throughout GI: COMMON NORMALS: Normal to inspection, nondistended, normoactive bowel sounds present, Soft to palpation, non-tender, No hepatosplenomegaly present and no masses AUSCULTATION: Yes normoactive bowel sounds PALPATION: Yes Soft to palpation, No Guarding due to palpation present (GI), No Rigid due to palpation and Yes No hepatosplenomegaly present RECTAL EXAM: deferred : COMMON NORMALS: Yes no CVA tenderness BLADDER/KIDNEY EXAM: Yes no CVA tenderness Back/Pelvis: COMMON NORMALS: no CVA tenderness Extremity: COMMON NORMALS: normal to inspection and full ROM Neuro: COMMON NORMALS: patient oriented x3, moves all extremities, no focal motor deficits and no sensory deficits noted SENSORIUM/ORIENTATION: Yes alert MENINGEAL SIGNS: Yes no meningeal signs Psych: COMMON NORMALS: mental status grossly normal, cooperative and speech normal SPEECH: Yes normal speech Skin: COMMON NORMALS: no rashes or lesions noted GENERAL SKIN EXAM: no rashes or lesions noted Course 2 Vital Signs: Vital signs: Vital Signs Temperature 98.1 F 11/16/24 18:15 Pulse Rate 76 11/16/24 20:11 Respiratory Rate 16 11/16/24 19:32 Blood Pressure 130/77 11/16/24 19:32 Pulse Oximetry 94 11/16/24 20:11 Oxygen Delivery Me thod Room Air 11/16/24 20:11 [facility] - Female Medical Decision Making Patient presenting with vaginal bleeding for 2 weeks, stating menstrual period began on the fourth but she has continued to bleed. However only notes that this is when she wipes. No pain, though has noted she is started to get dizzy and lightheaded. Vitals have been unremarkable. Her test was negative. Blood count normal, rest of her labs unremarkable aside from signs of a UTI by urine. Ultrasound did show evidence of fibroids, I suspect bleeding fibroids and will refer her to [facility] for further evaluation as she is stable for discharge. No further lab work or imaging necessary here. Return precautions given, she verbalized understanding. Lab Data 11/16/24 19:12 11/16/24 19:12 Radiology Impressions Transvaginal US 11/16/24 18:50 IMPRESSION: As above. Laboratory Results WBC 11.68 10^3/uL (3.29-11.43) H 11/16/24 19:12 RBC 4.93 10^6/uL (3.85-5.65) 11/16/24 19:12 Hgb 14.70 g/dL (11.27-16.99) 11/16/24 19:12 Hct 45.3 % (36-47) 11/16/24 19:12 MCV 91.9 fl (85-98) 11/16/24 19:12 MCH 29.8 pg (27-33) 11/16/24 19:12 MCHC 32.5 g/dL (30-55) 11/16/24 19:12 RDW 14.1 % (12.1-15.1) 11/16/24 19:12 Plt Count 268 10^3/cmm (157-399) 11/16/24 19:12 MPV 10.3 fL (7.4-10.4) 11/16/24 19:12 Neut % (Auto) 65.5 % 11/16/24 19:12 Lymph % (Auto) 27.6 % 11/16/24 19:12 [place] % (Auto) 5.0 % 11/16/24 19:12 Eos % (Auto) 1.4 % 11/16/24 19:12 Baso % (Auto) 0.3 % 11/16/24 19:12 Neut # (Auto) 7.66 10^3/uL (1.8-7.7) 11/16/24 19:12 Lymph # (Auto) 3.2 10^3/uL (0.8-4.8) 11/16/24 19:12 [place] # (Auto) 0.6 10^3/uL (0.2-0.9) 11/16/24 19:12 Eos # (Auto) 0.2 10^3/uL (0.0-0.8) 11/16/24 19:12 Baso # (Auto) 0.0 10^3/uL (0.0-0.1) 11/16/24 19:12 Nucleated RBC % (auto) 0 % 11/16/24 19:12 Nucleated RBCs # 0.0 /100WBC 11/16/24 19:12 Sodium 141 mmol/L (136-145) 11/16/24 19:12 Potassium 3.9 mmol/L (3.5-5.1) 11/16/24 19:12 Chloride 106 mmol/L (98-107) 11/16/24 19:12 Carbon Dioxide 23 mmol/L (22-29) 11/16/24 19:12 Anion Gap 15.9 (5-19) 11/16/24 19:12 BUN 20 mg/dL (6-20) 11/16/24 19:12 Creatinine 0.5 mg/dL (0.5-0.9) 11/16/24 19:12 GFR Calculation 141.2 mL/min (90-130) H 11/16/24 19:12 Glucose 83 mg/dL (65-115) 11/16/24 19:12 Calculated Osmolality 294 mOsm/kg (285-295) 11/16/24 19:12 Calcium 9.3 mg/dL (8.5-10.5) 11/16/24 19:12 Total Bilirubin 0.2 mg/dL (0.15-1.2) 11/16/24 19:12 AST 22 U/L (0-32) 11/16/24 19:12 ALT 17 U/L (0-33) 11/16/24 19:12 Alkaline Phosphatase 76 U/L (35-105) 11/16/24 19:12 Total Protein 7.2 g/dL (6.6-8.7) 11/16/24 19:12 Albumin 4.4 g/dL (3.5-5.2) 11/16/24 19:12 Globulin 2.8 g/dL (1.3-4.6) 11/16/24 19:12 HCG, Qual Negative (Negative) 11/16/24 19:12 Urine Color Yellow (Yellow) 11/16/24 20:00 Urine Appearance Clear (CLEAR) 11/16/24 20:00 Urine pH 8.5 (5-7) A 11/16/24 20:00 Ur Specific [place] 1.005 (1.005-1.030) 11/16/24 20:00 Urine Protein Negative (Negative) 11/16/24 20:00 Urine Glucose (UA) Negative (Normal) 11/16/24 20:00 Urine Ketones Negative (Negative) 11/16/24 20:00 Urine Blood 3+ (Negative) A 11/16/24 20:00 Urine Nitrate Negative (Negative) 11/16/24 20:00 Urine Bilirubin Negative (Negative) 11/16/24 20:00 Urine Urobilinogen 0.2 mg/dL (Negative) 11/16/24 20:00 Ur Leukocyte Esterase 1+ (Negative) A 11/16/24 20:00 Urine RBC 6-10 /hpf (0-2) 11/16/24 20:00 Urine WBC 11-20 /hpf (0-5) H 11/16/24 20:00 Ur Squamous Epith Cells 0-5 /hpf (0-5) 11/16/24 20:00 Amorphous Sediment Not Reportable 11/16/24 20:00 Urine Bacteria 1+ /hpf (NONE) H 11/16/24 20:00 Hyaline Casts 1.21 /lpf 11/16/24 20:00 Blood Type A Positive 11/16/24 19:12 Rho(D) Type Rh positive 11/16/24 19:12 Antibody Screen Negative 11/16/24 19:12 All radiology interpretation(s) finalized by discharge Discharge Plan Discharge Patient Disposition: Home Clinical Impression: Urinary tract infection Fibroid, uterine Qualifiers: Uterine leiomyoma location: unspecified location Qualified Code(s): D25.9 - Leiomyoma of uterus, unspecified Condition: Stable Prescriptions: New cefdinir 300 mg capsule 300 mg PO BID 7 Days Qty: 14 0RF No Action ketorolac 30 mg/mL solution 30 mg IM ONCE Qty: 1 0RF methylprednisolone acetate 40 mg/mL suspension 40 mg IM ONCE Qty: 1 0RF dexamethasone sodium phosphate 4 mg/mL solution 4 mg IM ONCE Qty: 1 0RF folic acid 1 mg tablet 1 mg PO DAILY 90 Days Qty: 90 1RF cholecalciferol (vitamin D3) 50 mcg (2,000 unit) capsule 50 mcg PO DAILY 90 Days Qty: 90 1RF fexofenadine-pseudoephedrine [Agueda-D 12 Hour] 60-120 mg tablet extended release 12 hr 1 tab PO Q12H PRN (Reason: nasal congestion) Qty: 20 0RF tamsulosin [Flomax] 0.4 mg capsule 0.4 mg PO DAILY Qty: 30 0RF propranolol 10 mg tablet 10 mg PO BID 30 Days Qty: 60 5RF Discharge Orders: Discharge ED (Routine); Ordered 11/16/24 Ordered By: Jame Hopkins Referrals: Juju Curry FNP [Primary Care Provider] - Patient Instructions: Uterine Fibroids (ED), Urinary Tract Infection in Women (ED) Activity Restrictions/Additional Instructions: Follow-up with your regular doctor as planned tomorrow. Follow-up with gynecology. Please return with any worsening bleeding, or other worsening of symptoms. Take antibiotics for your UTI. Please see the attached patient instructions for further education. Print Language: Welsh Coding Level of Care Code ED Cleaning Specialist for Zain Cuellar
[2024-11-16 19:26] LABS: Basophils % 0.3 %; Eosinophils # 0.2 10^3/uL (0.0-0.8); Eosinophils % 1.4 %; Hematocrit 45.3 % (36-47); Lymphocytes # 3.2 10^3/uL (0.8-4.8); Lymphocytes % 27.6 %; Mean Corpuscular HGB Conc 32.5 g/dL (30-55); Mean Corpuscular Hemoglobin 29.8 pg (27-33); Mean Corpuscular Volume 91.9 fl (85-98); Mean Platelet Volume 10.3 fL (7.4-10.4); Monocytes # 0.6 10^3/uL (0.2-0.9); Neutrophils # 7.66 10^3/uL (1.8-7.7); Neutrophils % 65.5 %; Nucleated Red Blood Cells % 0 %; Platelet Count 268 10^3/cmm (157-399); Red Blood Count 4.93 10^6/uL (3.85-5.65); Red Cell Distribution Width 14.1 % (12.1-15.1); White Blood Count 11.68 10^3/uL (3.29-11.43)
[2024-11-16 19:32] VITALS: BP 130/77; PULSE 64; RESP 16; O2SAT 96
[2024-11-16 19:39] LABS: Alanine Aminotransferase 17 U/L (0-33); Albumin Level 4.4 g/dL (3.5-5.2); Alkaline Phosphatase 76 U/L (35-105); Anion Gap 15.9 (5-19); Aspartate Amino Transferase 22 U/L (0-32); Blood Urea Nitrogen 20 mg/dL (6-20); Calcium 9.3 mg/dL (8.5-10.5); Carbon Dioxide 23 mmol/L (22-29); Chloride 106 mmol/L (98-107); Creatinine Clr Calc Pharmacy 152.6224; Globulin 2.8 g/dL (1.3-4.6); Glomerular Filtration Rate 141.2 mL/min (90-130); Glucose 83 mg/dL (65-115); Osmolality Calculated 294 mOsm/kg (285-295); Potassium 3.9 mmol/L (3.5-5.1); Sodium 141 mmol/L (136-145); Total Bilirubin 0.2 mg/dL (0.15-1.2); Total Protein 7.2 g/dL (6.6-8.7)
[2024-11-16 19:51] LABS: HCG, Serum Qual Negative (Negative)
[2024-11-16 20:11] VITALS: PULSE 76; O2SAT 94
[2024-11-16 20:38] LABS: Bilirubin Urine Negative (Negative); Blood Urine 3+ (Negative); Glucose Urine UA Negative (Normal); Ketones Urine Negative (Negative); Leukocyte Esterase Urine 1+ (Negative); Nitrate Urine Negative (Negative); Protein Urine Negative (Negative); Specific Gravity, Urine 1.005 (1.005-1.030); Urine Appearance Clear (CLEAR); Urine Color Yellow (Yellow); Urobilinogen Urine 0.2 mg/dL (Negative); pH Urine 8.5 (5-7)
[2024-11-16 20:43] LABS: Add Urine Microscopic? YES; Bacteria Urine 1+ /hpf; Hyaline Casts Urine 1.21 /lpf; Squamous Epithelial Cell Urine 0-5 /hpf (0-5)
[2024-11-16 20:51] LABS: Add Urine Culture? Yes
[2024-11-16 21:12] VITALS: BP 130/77; PULSE 71; O2SAT 94
--- NOTE | 2024-11-17 08:01 | DCPLANNER ---
Message sent to OBGYN- Patient presenting with vaginal bleeding for 2 weeks, stating menstrual period began on the fourth but she has continued to bleed. However only notes that this is when she wipes. No pain, though has noted she is started to get dizzy and lightheaded. Vitals have been unremarkable. Her test was negative. Blood count normal, rest of her labs unremarkable aside from signs of a UTI by urine. Ultrasound did show evidence of fibroids, I suspect bleeding fibroids and will refer her to [facility] for further evaluation as she is stable for discharge. No further lab work or imaging necessary here. Return precautions given, she verbalized understanding.
== END 2024-11-16 21:13 | disposition home or self-care (01) ==
PROVIDERS: Emergency Provider Physician Assistant; PCP Nurse Practitioner Family
DX: N39.0 Urinary tract infection, site not specified (principal); D25.9 Leiomyoma of uterus, unspecified
CPT/HCPCS: 36415; 76830; 80053; 81001; 84703; 85025; 86850; 86900; 87086; 99284

== ENCOUNTER → 2024-12-08 13:24 | Outpatient (BNVA) | payer MEDICAID, SELFPAY | PROVIDERS: PCP Nurse Practitioner Family; Visit Provider Obstetrics & Gynecology | DX: Z01.419 Encounter for gynecological examination (general) (routine) without abnormal findings (principal) | CPT/HCPCS: 87624 ==

== ENCOUNTER → 2025-01-17 13:46 | Outpatient (BNVA) | payer MEDICAID, SELFPAY | PROVIDERS: PCP Nurse Practitioner Family; Visit Provider Nurse Practitioner Family | DX: N93.9 Abnormal uterine and vaginal bleeding, unspecified (principal); R11.0 Nausea | CPT/HCPCS: 80053; 83002; 84144; 84443; 85025; 86003; 86008; 86618; 86666; 86757 ==

== ENCOUNTER 2025-05-06 23:06 | Emergency (ER) | payer MEDICAID, SELFPAY ==
[2025-05-06 23:12] VITALS: BP 115/74; PULSE 84; RESP 18; O2SAT 95
--- OUTSIDE RECORDS SUMMARY | 2025-05-06 23:12 | XMS_ITS | Patient Health Record ---
Author Organization [facility] Address [address] [place] [address] Care Team Providers Care Oracle Apex Developer Name Role Phone Jeanette Joiner Primary Care Provider JEANETTE JOINER Unavailable Unavailable Allergies No Known Allergies Reason For Referral No Information Social History Tobacco Use: Social History Observation Description Date Details (start date - stop date) Current Smoker NA - NA Social History Depression Screening Social Info Question Answer Notes PHQ-9 Little interest or pleasure in doing thin gs Not at all Feeling down, depressed, or hopeless Not at all Trouble falling or staying asleep, or sleeping t oo much Not at all Feeling tired or having little energy Not at all Poor appetite or overeating Not at all Feeling bad about yourself, or that you are a failure, or have let yourself or your family down Not at all Trouble concentrating on thi ngs, such as reading the newspaper or watching television Not at all Moving or speaking so slowly that other people could have noticed. Or the opposite ? being so fidgety or restless that you have been moving around a lot more than usual Not at all Thoughts that you would be b gian off , or of hurting yourself in some way Not at all Total Score 0 Drug/Alcohol: Social Info Question Answer Notes AUDIT-C (Standard) Did you have a drink containing alcohol in the past year? No Points 0 Interpretation Negative Tobacco Use: Social Info Question Answer Notes Tobacco Control (Standard) Tobacco use: Current smoker How often do you smoke cigarettes? Every day How many cigarettes a day do you smoke? 11- Section Notes: 10/22/23 PHQ9 Problems Problem Type SNOMED Code ICD Code Onset Dates Problem Status W/U Status Risk Notes Problem Migraine (67196009) Migraine (G43.909) Active confirmed Plan Of Treatment No Information Insurance Providers Payer Name Payer Address Payer Phone Subscriber Number Group Number Insured Name Patient Relationship to Insured Coverage Start Date Coverage End Date [facility] [employer] [address] [place] [address] [id number] Niurka Munguia Self - patient is the insured [place] Medicaid [address] [place] [address] [id number] [phone] [id number] Niurka Cordova Self - patient is the insured Medications Administered Medication Instructions Date of Administration Dosage Notes Ketorolac Tromethamine 10/22/2023 60 mg nd [id number] Patient tolerated well.
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
== END 2025-05-07 03:40 | disposition home or self-care (01) ==
PROVIDERS: Emergency Provider Emergency Medicine; PCP Nurse Practitioner Family
DX: S06.0X0A Concussion without loss of consciousness, initial encounter (principal); F17.210 Nicotine dependence, cigarettes, uncomplicated; Y04.2XXA Assault by strike against or bumped into by another person, initial encounter
CPT/HCPCS: 99281

== ENCOUNTER 2025-05-16 16:30 | Outpatient (CLI) | payer MEDICAID, SELFPAY ==
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
== END 2025-05-16 16:31 | disposition home or self-care (01) ==
LOC: RAD 16:31
PROVIDERS: PCP Nurse Practitioner Family; Visit Provider Nurse Practitioner Family
DX: S06.0XAA Concussion with loss of consciousness status unknown, initial encounter (principal); X58.XXXA Exposure to other specified factors, initial encounter
CPT/HCPCS: 70450

== ENCOUNTER 2025-05-31 17:30 | Emergency (ER) | payer MEDICAID, SELFPAY ==
[2025-05-31 17:34] VITALS: PULSE 100; RESP 18; TEMP 37.2; O2SAT 98
--- OUTSIDE RECORDS SUMMARY | 2025-05-31 17:51 | XMS_ITS | Patient Health Record ---
Author Organization [facility] Address [address] [place] [address] Care Team Providers Care Gyroscope Repairer Name Role Phone Jeanette Joiner Primary Care [...] Status W/U Status Risk Notes Problem Migraine ([id number]) Migraine (G43.909) Active confirmed Plan Of Treatment No Information Insurance Providers Payer Name Payer Address Payer Phone Subscriber Number Group Number Insured Name Patient Relationship to Insured Coverage Start Date Coverage End Date [facility] [employer] [address] [place] [address] [id number] Niurka Munguia Self - patient is the insured [place] Medicaid [address] [place] [address] [id number] [phone] Niurka Cordova Self - patient is the insured Medications Administered Medication Instructions Date of Administration Dosage Notes Ketorolac Tromethamine 10/22/2023 60 mg nd [id number] Patient tolerated well.
--- NOTE | 2025-05-31 19:00 | W.ED.HA ---
HPI - Headache General: Chief Complaint: Headache Stated Complaint: BECERRA Time Seen by Provider: 05/31/25 18:49 Source: patient Mode of arrival: ambulatory Limitations: no limitations History of Present Illness: Patient is a 34-year-old female with a longstanding history of migraine headaches here for complaints of a headache. Patient states her headache is to the right side of her head and periorbital region which she states is characteristic for her migraines. Patient is tremulous and is having changes in her vision which she states is normal. Significant other states she will often times have trouble with her speech as well. She does see Dr. Clark for treatment of her headaches and takes Propranolol. She does state this medication has helped and has not had a headache like this one in over a year. She states earlier today she had an episode of hyperventilation and believes she passed out briefly. Looking at documentation from her neurologist-this all seems like symptoms she has had previously. MD elicited complaint: headache and migraine Pertinent past history: migraines Onset (ago): hour(s) Location: right and retro-orbital Severity: severe Exacerbating factors: light Relieving factors: nothing Associated symptoms: Reports other (visual changes, tremor ); Deny chest pain, fever(s), lightheadedness, malaise, nausea, rash, syncope or vomiting Treatments prior to arrival: none Related Data Previous Rx's ?Medication ?Instructions ?Recorded fexofenadine 60 mg-pseudoephedrine 1 tab PO Q12H PRN nasal congestion 04/16/24 ER 120 mg tablet,ext.release,12 hr #20 tabs (Agueda-D 12 Hour) propranolol 10 mg tablet 10 mg PO BID 30 days #60 tabs 05/31/25 Allergies Allergy/AdvReac Type Severity Reaction Status Date / Time ondansetron (From Zofran) Allergy ADR-Diarrhe Verified 05/13/25 09:53 a Review of Systems Const: Denies: fever(s), chills, body aches, fatigue or malaise Eyes: Reports: change in vision, blurry vision and photophobia Card: Denies: chest pain, palpitations, irregular heart rhythm, lightheadedness, syncope or dyspnea on exertion Resp: Denies: dyspnea, productive cough or pain on inspiration GI: Denies: abdominal pain, nausea, vomiting, heartburn or diarrhea : Denies: dysuria Musc: Denies: neck pain, back pain, extremity pain, extremity swelling or joint pain Skin/Breast: Denies: rash Neuro: Reports: headache(s) and dizziness; Denies: numbness in extremities, weakness in extremities, sensory changes or seizure-like activity Psych: Reports: anxiety PFSH ED PFSH: Medical History H/O pulmonary artery stenosis Positive ROMEL (antinuclear antibody) Hip pain, right Migraine with aura and without status migrainosus Surgical History History of dental surgery Family History Father Heart disease Mother Heart disease Hyperlipidemia Hypertension Diabetes Grandmother Heart disease Hypertension Stroke Grandfather Heart disease Hypertension Hyperlipidemia Stroke Diabetes Denies family history of Colon cancer Ovarian cancer Hypercholesteremia Breast cancer Uterine cancer Thyroid disease Social History Smoking and tobacco/nicotine status: current every day tobacco/nicotine user (1 ppd) cigarettes Packs smoked per day: 1 Years cigarettes smoked: 4 Alcohol intake: never Substance/Drug Use: never Physical Exam Const: COMMON NORMALS: average body habitus, patient oriented x3, no limitations, healthy appearing, alert and well nourished GENERAL APPEARANCE: cooperative and anxious ORIENTATION/CONSCIOUSNESS: Yes awake, Yes oriented to person, Yes oriented to place and Yes oriented to time HENMT: COMMON NORMALS: normocephalic and atraumatic HEAD & SCALP: normal to inspection, normocephalic and atraumatic FACE & SINUS: face symmetric Eye: COMMON NORMALS: Equal, round and reactive pupils present and EOMs intact bilaterally GENERAL EYE: appearance normal, both eyes and all related structures and normal light reflex PUPIL: Yes Equal, round and reactive pupils present DIRECT OPHTHALMOSCOPY: Yes normal light reflex Neck/C-Spine: COMMON NORMALS: no meningeal signs Extremity: NARRATIVE EXTREMITY EXAM: hands are tremulous/ pt very anxious GENERAL: Yes normal exam except as noted Neuro: SAMSON COMA SCALE: document GCS findings [place] coma scale eye opening: Spontaneous [place] coma scale verbal response: Orientated [place] coma scale motor response: Obey commands Samson coma scale total score: 15 COMMON NORMALS: patient oriented x3, CN's II-XII intact bilaterally, moves all extremities, no focal motor deficits and no sensory deficits noted SENSORIUM/ORIENTATION: Yes alert, Yes oriented to person, Yes oriented to place and Yes oriented to time MENINGEAL SIGNS: Yes no meningeal signs Course Vital Signs: Vital signs: Vital Signs Temperature 98.9 F 05/31/25 17:34 Pulse Rate 100 05/31/25 17:34 Respiratory Rate 18 05/31/25 17:34 Pulse Oximetry 98 05/31/25 17:34 Oxygen Delivery Me thod Room Air 05/31/25 17:34 MDM - Headache Medical Decision Making Patient reports significant improvement in her symptoms/headache during re-examination. Patient feels comfortable going home at this time. Differential Diagnosis Likely migraine, tension headache, subarachnoid hemorrhage and headache Medical Records I reviewed the patient's medical records. Lab Data I reviewed the patient's lab results. No radiology studies performed this visit Discharge Plan Discharge Patient Disposition: Home Clinical Impression: Migraine Condition: Stable Prescriptions: No Action ketorolac 30 mg/mL solution 30 mg IM ONCE Qty: 1 0RF methylprednisolone acetate 40 mg/mL suspension 40 mg IM ONCE Qty: 1 0RF dexamethasone sodium phosphate 4 mg/mL solution 4 mg IM ONCE Qty: 1 0RF fexofenadine-pseudoephedrine [Agueda-D 12 Hour] 60-120 mg tablet extended release 12 hr 1 tab PO Q12H PRN (Reason: nasal congestion) Qty: 20 0RF propranolol 10 mg tablet 10 mg PO BID 30 Days Qty: 60 0RF Discharge Orders: Discharge ED (Routine); Ordered 05/31/25 Ordered By: Nuha Hnedrix Referrals: Juju Curry FNP [Primary Care Provider, Family Practice] Patient Instructions: Headache - Migraine (Adult), Patient Portal & Carrie Instructions Print Language: Ivorian Coding Level of Care Code ED School Age Program Associate for Zain Cuellar
[2025-05-31] MEDS: diphenhydrAMINE 50 mg/mL SDV 1mL 25 MG IVP (19:19)
[2025-05-31] MEDS: metoclopramide 5 mg/mL SDV 2 mL 10 MG IVP (19:19)
== END 2025-05-31 20:58 | disposition home or self-care (01) ==
PROVIDERS: Emergency Provider Physician Assistant; PCP Nurse Practitioner Family
DX: G43.909 Migraine, unspecified, not intractable, without status migrainosus (principal); F17.210 Nicotine dependence, cigarettes, uncomplicated
CPT/HCPCS: 96374; 96375; 99284; J1100; J1200; J1885; J2765; J7030

== ENCOUNTER → 2025-06-07 13:43 | Outpatient (BNVA) | payer MEDICAID, SELFPAY | PROVIDERS: PCP Nurse Practitioner Family; Visit Provider Nurse Practitioner Family | DX: R53.83 Other fatigue (principal) | CPT/HCPCS: 80053; 80061; 81025; 82306; 82607; 83735; 84443; 85025 ==

== ENCOUNTER 2025-06-11 17:58 | Emergency (ER) | payer MEDICAID, SELFPAY ==
--- NOTE | 2025-06-11 18:04 | CTR_ITS ---
PROCEDURE INFORMATION: Exam: CT Head Without Contrast Exam date and time: 06/11/2025 5:59 PM Age: 34 years old Clinical indication: Stroke-like symptoms; Headache; Lt upper extremity weakness; Additional info: EMS arrival for poss CVA. Severe BECERRA with left upper ext weakness. History of recurrent migraines. Unknown last known well time. TECHNIQUE: Imaging protocol: Computed tomography of the head without contrast. Radiation optimization: All CT scans at this facility use at least one of these dose optimization techniques: automated exposure control; mA and/or kV adjustment per patient size (includes targeted exams where dose is matched to clinical indication); or iterative reconstruction. Other technique: STROKE PROTOCOL was implemented. COMPARISON: CT head wo con* [id number] 05/16/2025 4:44 PM RADIATION DOSE METRICS: Total DLP (mGy-cm): 1024.45 FINDINGS: Brain: Normal. No hemorrhage. Unremarkable white matter. No mass effect. Cerebral ventricles: No ventriculomegaly. Paranasal sinuses: A small mucous retention cyst in the right sphenoid sinus not significantly changed. Mastoid air cells: Visualized mastoid air cells are well aerated. Bones: Unremarkable. No acute fracture. Soft tissues: Unremarkable. CT/CT head thrombolytic [id number] IMPRESSION: No acute intracranial finding. ASSESSMENT: ASPECTS ([place] Stroke Program Early CT Score) is 10.
--- OUTSIDE RECORDS SUMMARY | 2025-06-11 18:04 | XMS_ITS | Patient Health Record ---
Author Organization [facility] Address [address] [place] [address] Care Team Providers Care Manager Cosmetics Name Role Phone Jeanette Joiner Primary Care [...] Status W/U Status Risk Notes Problem Migraine ([id number]) Migraine (G43.909) Active confirmed Plan Of Treatment No Information Insurance Providers Payer Name Payer Address Payer Phone Subscriber Number Group Number Insured Name Patient Relationship to Insured Coverage Start Date Coverage End Date [facility] [employer] [address] [place] [address] [id number] Niurka Munguia Self - patient is the insured [place] Medicaid [address] [place] [address] [id number] [phone] Niurka Cordova Self - patient is the insured Medications Administered Medication Instructions Date of Administration Dosage Notes Ketorolac Tromethamine 10/22/2023 60 mg nd [id number] Patient tolerated well.
--- NOTE | 2025-06-11 18:07 | ECG_ITS ---
[email or web address] Date: 2025-06-11 Pat Name: Niurka Cordova Department: Room: Gender: Female Webmethods Architect: : 1990 Requested By: Naresh Sutherland Order Number: [id number] Alvaro MD: Angie Wisdom M.D. Measurements Intervals [place] Rate: 77 P: 72 MO: 186 QRS: 33 QRSD: 105 T: 51 QT: 358 QTc: 405 Interpretive Statements SINUS RHYTHM POSSIBLE LEFT ATRIAL ENLARGEMENT [-0.1mV P-WAVE IN V1/V2] INCOMPLETE RIGHT BUNDLE BRANCH BLOCK [90+ ms QRS DURATION, TERMINAL R IN V1/V2, 40+ ms S IN I/aVL/V4/V5/V6] MINIMAL ST DEPRESSION [0.025+ mV ST DEPRESSION] No previous ECG available for comparison Electronically Signed On 06-12-2025 20:16:13 CLIENT SERVICE MANAGER by Angie Wisdom M.D. [email or web address]
[2025-06-11 18:08] VITALS: BP 124/75; PULSE 79; RESP 18; TEMP 36.7; O2SAT 96; BMI 24.2
--- NOTE | 2025-06-11 18:16 | W.ED.NEUROSD ---
HPI - Neuro Symptoms/Deficit General: Chief Complaint: Neuro Symptoms/Deficit Stated Complaint: left sided weakness Time Seen by Provider: 06/11/25 18:00 History of Present Illness: 34-year-old female history of migraine headache. She says that she has felt generally unwell since waking this morning. She complained of being generally weak, mildly dizzy. She has not had a headache. She had been lying awake in bed, and at 430 or so attempted to get out of bed. She noticed that on rising, her left leg and left arm felt numb at that point. They were also weak. She almost fell. She had vision changes as well with blurring and a loss of part of her vision although she cannot explain which part. She did not have speech problems, but was mildly confused. Confusion is cleared. She is not as weak or is numb on her left side. She still does not have a headache. At times, she experiences some of the symptoms with migraine headache. Related Data Previous Rx's ?Medication ?Instructions ?Recorded fexofenadine 60 mg-pseudoephedrine 1 tab PO Q12H PRN nasal congestion 04/16/24 ER 120 mg tablet,ext.release,12 hr #20 tabs (Agueda-D 12 Hour) propranolol 10 mg tablet 10 mg PO BID 30 days #60 tabs 05/31/25 venlafaxine 37.5 mg tablet 37.5 mg PO DAILY #30 tabs 06/07/25 ergocalciferol (vitamin D2) 1,250 1,250 mcg PO .weekly #12 caps 06/12/25 mcg (50,000 unit) capsule Allergies Allergy/AdvReac Type Severity Reaction Status Date / Time ondansetron (From Zofran) Allergy ADR-Diarrhe Verified 06/07/25 09:47 a [facility] ED [facility]: Medical History (Updated 06/11/25 @ 20:04 by Naresh Cai DO) H/O pulmonary artery stenosis Positive ROMEL (antinuclear antibody) Hip pain, right Migraine with aura and without status migrainosus Surgical History History of dental surgery Family History Father Heart disease Mother Heart disease Hyperlipidemia Hypertension Diabetes Grandmother Heart disease Hypertension Stroke Grandfather Heart disease Hypertension Hyperlipidemia Stroke Diabetes Denies family history of Colon cancer Ovarian cancer Hypercholesteremia Breast cancer Uterine cancer Thyroid disease Social History Smoking and tobacco/nicotine status: current every day tobacco/nicotine user (1 ppd) cigarettes Packs smoked per day: 1 Years cigarettes smoked: 4 Alcohol intake: never Substance/Drug Use: never NIH stroke score NIHSS: Level Of Consciousness - 1a: 0 Level Of Consciousness Questions - 1b: Both Correct Level Of Consciousness Commands - 1c: Both Correct Best Gaze - 2: Normal Visual [place] - 3: No Visual Loss Facial Palsy - 4: Normal Motor Arm Right - 5: No Drift Motor Arm Left - 5: Drift Motor Leg Right - 6: No Drift Motor Leg Left - 6: Drift Limb Ataxia - 7: Present In One Limb Sensory - 8: Mild To Moderate Loss Best Language - 9: No Aphasia Dysarthia - 10: Normal Extinction And Inattention - 11: 0 Score: Total Score: 4 Physical Exam Const: COMMON NORMALS: no acute distress GENERAL APPEARANCE: cooperative; not frail appearing HENMT: COMMON NORMALS: normocephalic, atraumatic and Normal external nose present HEAD & SCALP: normocephalic and atraumatic FACE & SINUS: normal facial exam and face symmetric NOSE: Normal external nose present Eye: COMMON NORMALS: Equal, round and reactive pupils present and EOMs intact bilaterally PUPIL: Yes Equal, round and reactive pupils present Neck/C-Spine: GENERAL: Yes trachea midline Chest: CHEST: Yes Symmetrical chest wall rise Resp: COMMON NORMALS: normal respiratory effort, No retractions, No use of accessory muscles and clear to auscultation bilaterally AUSCULTATION: clear to auscultation bilaterally Cardio: COMMON NORMALS: regular rate and regular rhythm RATE: regular rate RHYTHM: regular rhythm GI: COMMON NORMALS: Normal to inspection, nondistended, normoactive bowel sounds present Extremity: COMMON NORMALS: no pedal edema Neuro: SAMSON COMA SCALE: document GCS findings Samson coma scale eye opening: Spontaneous Samson coma scale verbal response: Orientated [place] coma scale motor response: Obey commands Samson coma scale total score: 15 SENSORY EXAM: Yes extremities (intact) Psych: COMMON NORMALS: speech normal SPEECH: Yes normal speech Skin: COMMON NORMALS: no rashes or lesions noted GENERAL SKIN EXAM: no rashes or lesions noted Course Vital Signs: Vital signs: Vital Signs Temperature 98.1 F 06/11/25 18:08 Pulse Rate 74 06/11/25 18:55 Respiratory Rate 16 06/11/25 18:55 Blood Pressure 124/75 06/11/25 18:08 Pulse Oximetry 95 06/11/25 18:55 Oxygen Delivery Me thod Room Air 06/11/25 18:55 MDM - Neuro Symptoms/Deficit Medical Decision Making 34-year-old migraineur with strokelike symptoms with onset at 1630. Symptoms are greatly improved currently, but not resolved. She does not have a headache currently. She was able to walk in the ER with minimal assistance. We have a call out to our stroke team, which this weekend is covered by [facility] neurology. Her NIH is 4 initially. She is improved now currently to a NIH of 2. Consulted with Dr. Meza from [facility] neurology. Agrees with improving and now mild symptoms, would not give thrombolytics currently. Suggests observation and further workup for her. Agrees with Depacon for complex or atypical migraine. Patient refused Depacon infusion and Reglan. She did get a liter of fluid. She says she feels much better. She is only mildly dizzy currently. She was offered admission, but wishes to go home. Will ask case management to order an MRI as an outpatient for the patient. She knows to return for any return of symptoms. She is stable for discharge at this point. Lab Data 06/11/25 18:36 06/11/25 18:[address] 06/11/25 18:04 IMPRESSION: No acute intracranial finding. ASSESSMENT: ASPECTS ([place] Stroke Program Early CT Score) is 10. ADDENDUM: 06/11/25 5946 THIS REPORT CONTAINS FINDINGS THAT MAY BE CRITICAL TO PATIENT CARE. The findings were acknowledged by NARESH CAI at 6:27 PM CSTon 06/11/2025 through the operation center. Laboratory Results WBC 9.96 10^3/uL (3.29-11.43) 06/11/25 18:36 RBC 4.89 10^6/uL (3.85-5.65) 06/11/25 18:36 Hgb 14.40 g/dL (11.27-16.99) 06/11/25 18:36 Hct 43.4 % (36-47) 06/11/25 18:36 MCV 88.8 fl (85-98) 06/11/25 18:36 MCH 29.4 pg (27-33) 06/11/25 18:36 MCHC 33.2 g/dL (30-55) 06/11/25 18:36 RDW 13.5 % (12.1-15.1) 06/11/25 18:36 Plt Count 248 10^3/cmm (157-399) 06/11/25 18:36 MPV 10.2 fL (7.4-10.4) 06/11/25 18:36 Neut % (Auto) 66.8 % 06/11/25 18:36 Lymph % (Auto) 26.4 % 06/11/25 18:36 [place] % (Auto) 5.1 % 06/11/25 18:36 Eos % (Auto) 1.2 % 06/11/25 18:36 Baso % (Auto) 0.3 % 06/11/25 18:36 Neut # (Auto) 6.65 10^3/uL (1.8-7.7) 06/11/25 18:36 Lymph # (Auto) 2.6 10^3/uL (0.8-4.8) 06/11/25 18:36 [place]cock # (Auto) 0.5 10^3/uL (0.2-0.9) 06/11/25 18:36 Eos # (Auto) 0.1 10^3/uL (0.0-0.8) 06/11/25 18:36 Baso # (Auto) 0.0 10^3/uL (0.0-0.1) 06/11/25 18:36 Nucleated RBC % (auto) 0 % 06/11/25 18:36 Nucleated RBCs # 0.0 /100WBC 06/11/25 18:36 PT 12.20 SECONDS (12.1-14.9) 06/11/25 18:36 INR 0.85 (0.8-1.2) 06/11/25 18:36 APTT 24.9 SECONDS (23.9-36.7) 06/11/25 18:36 Sodium 139 mmol/L (136-145) 06/11/25 18:36 Potassium 3.8 mmol/L (3.5-5.1) 06/11/25 18:36 Chloride 107 mmol/L (98-107) 06/11/25 18:36 Carbon Dioxide 20 mmol/L (22-29) L 06/11/25 18:36 Anion Gap 15.8 (5-19) 06/11/25 18:36 BUN 12 mg/dL (6-20) 06/11/25 18:36 Creatinine 0.5 mg/dL (0.5-0.9) 06/11/25 18:36 GFR Calculation 141.2 mL/min (90-130) H 06/11/25 18:36 Glucose 94 mg/dL (65-115) 06/11/25 18:36 POC Glucose 86 mg/dL (70-110) 06/11/25 18:04 Calculated Osmolality 288 mOsm/kg (285-295) 06/11/25 18:36 Calcium 9.0 mg/dL (8.5-10.5) 06/11/25 18:36 Total Bilirubin 0.2 mg/dL (0.15-1.2) 06/11/25 18:36 AST 15 U/L (0-32) 06/11/25 18:36 ALT 10 U/L (0-33) 06/11/25 18:36 Alkaline Phosphatase 72 U/L (35-105) 06/11/25 18:36 Total Protein 6.6 g/dL (6.6-8.7) 06/11/25 18:36 Albumin 4.1 g/dL (3.5-5.2) 06/11/25 18:36 Globulin 2.5 g/dL (1.3-4.6) 06/11/25 18:36 Ser , Semi-Qnt < 1.00 mIU/mL 06/11/25 18:36 Urine Color Yellow (Yellow) 06/11/25 18:39 Urine Appearance Clear (CLEAR) 06/11/25 18:39 Urine pH 6.0 (5-7) 06/11/25 18:39 Ur Specific [place] 1.009 (1.005-1.030) 06/11/25 18:39 Urine Protein Negative (Negative) 06/11/25 18:39 Urine Glucose (UA) Negative (Normal) 06/11/25 18:39 Urine Ketones Negative (Negative) 06/11/25 18:39 Urine Blood 3+ (Negative) A 06/11/25 18:39 Urine Nitrate Negative (Negative) 06/11/25 18:39 Urine Bilirubin Negative (Negative) 06/11/25 18:39 Urine Urobilinogen 1.0 mg/dL (Negative) 06/11/25 18:39 Ur Leukocyte Esterase Trace (Negative) A 06/11/25 18:39 Urine RBC 0-2 /hpf (0-2) 06/11/25 18:39 Urine WBC 0-5 /hpf (0-5) 06/11/25 18:39 Ur Squamous Epith Cells 0-5 /hpf (0-5) 06/11/25 18:39 Amorphous Sediment Not Reportable 06/11/25 18:39 Urine Bacteria None seen /hpf (NONE) 06/11/25 18:39 Hyaline Casts 0.40 /lpf 06/11/25 18:39 Urine Opiates Screen Negative ng/mL (Negative) 06/11/25 18:39 Ur Barbiturates Screen Negative ng/mL (Negative) 06/11/25 18:39 Ur Phencyclidine Scrn Negative ng/mL (Negative) 06/11/25 18:39 Ur Amphetamines Screen Negative ng/mL (Negative) 06/11/25 18:39 U Benzodiazepines Scrn Negative ng/mL (Negative) 06/11/25 18:39 Urine Cocaine Screen Negative ng/mL (Negative) 06/11/25 18:39 U Marijuana (THC) Screen Negative ng/mL (Negative) 06/11/25 18:39 Ethyl Alcohol < 10 mg/dL (0-10) 06/11/25 18:36 All radiology interpretation(s) finalized by discharge Discharge Plan Discharge Patient Disposition: Home Clinical Impression: Neurological deficit, transient, History of atypical migraine Condition: Stable Prescriptions: No Action ketorolac 30 mg/mL solution 30 mg IM ONCE Qty: 1 0RF methylprednisolone acetate 40 mg/mL suspension 40 mg IM ONCE Qty: 1 0RF dexamethasone sodium phosphate 4 mg/mL solution 4 mg IM ONCE Qty: 1 0RF fexofenadine-pseudoephedrine [Agueda-D 12 Hour] 60-120 mg tablet extended release 12 hr 1 tab PO Q12H PRN (Reason: nasal congestion) Qty: 20 0RF venlafaxine 37.5 mg tablet 37.5 mg PO DAILY Qty: 30 0RF propranolol 10 mg tablet 10 mg PO BID 30 Days Qty: 60 0RF ergocalciferol (vitamin D2) 1,250 mcg (50,000 unit) capsule 1,250 mcg PO .weekly Qty: 12 0RF Discharge Orders: Discharge ED (Routine); Ordered 06/11/25 Ordered By: Naresh Cai Referrals: Juju Curry FNP [Primary Care Provider, Family Practice] - 1-3 days Patient Instructions: Opioid Safety, Pain Management, Patient Portal & Carrie Instructions Activity Restrictions/Additional Instructions: Return for worsening weakness, speech problems, worsening vision, dizziness, any other concerning symptoms. Stay hydrated. Follow-up with your doctor. Call Friday for a follow-up appointment. Case management should contact you regarding an outpatient MRI at the beginning of the week. Print Language: Indian Coding Level of Care Code ED [employer] Operator for Zain Cuellar
[2025-06-11 18:43] LABS: Glucose Urine UA Negative (Normal); Nitrate Urine Negative (Negative); Specific Gravity, Urine 1.009 (1.005-1.030)
[2025-06-11 18:43] LABS: Hematocrit 43.4 % (36-47); Hemoglobin 14.40 g/dL (11.27-16.99); Mean Corpuscular HGB Conc 33.2 g/dL (30-55); Mean Corpuscular Hemoglobin 29.4 pg (27-33); Mean Corpuscular Volume 88.8 fl (85-98); Nucleated Red Blood Cells % 0 %; Platelet Count 248 10^3/cmm (157-399); Red Blood Count 4.89 10^6/uL (3.85-5.65); White Blood Count 9.96 10^3/uL (3.29-11.43)
[2025-06-11 18:48] LABS: Add Urine Microscopic? YES
[2025-06-11 18:53] LABS: PCP Screen Urine Negative (Negative)
[2025-06-11 18:54] LABS: INR 0.85 (0.8-1.2); Prothrombin Time 12.20 SECONDS (12.1-14.9)
[2025-06-11 18:55] VITALS: PULSE 74; RESP 16; O2SAT 95
[2025-06-11 18:55] LABS: Partial Thromboplastin Time 24.9 SECONDS (23.9-36.7)
[2025-06-11 18:59] LABS: Alanine Aminotransferase 10 U/L (0-33); Albumin Level 4.1 g/dL (3.5-5.2); Alkaline Phosphatase 72 U/L (35-105); Anion Gap 15.8 (5-19); Aspartate Amino Transferase 15 U/L (0-32); Blood Urea Nitrogen 12 mg/dL (6-20); Calcium 9.0 mg/dL (8.5-10.5); Carbon Dioxide 20 mmol/L (22-29); Chloride 107 mmol/L (98-107); Creatinine Clr Calc Pharmacy 157.1634; Globulin 2.5 g/dL (1.3-4.6); Glucose 94 mg/dL (65-115); Osmolality Calculated 288 mOsm/kg (285-295); Potassium 3.8 mmol/L (3.5-5.1); Sodium 139 mmol/L (136-145); Total Protein 6.6 g/dL (6.6-8.7)
[2025-06-11 19:00] LABS: Alcohol Level < 10 mg/dL (0-10)
--- NOTE | 2025-06-13 09:27 | DCPLANNER ---
faxed outpatient mri to scheduling
== END 2025-06-11 20:29 | disposition home or self-care (01) ==
PROVIDERS: Emergency Provider Emergency Medicine; PCP Nurse Practitioner Family
DX: R29.818 Other symptoms and signs involving the nervous system (principal); Z86.69 Personal history of other diseases of the nervous system and sense organs; F17.210 Nicotine dependence, cigarettes, uncomplicated
CPT/HCPCS: 36415; 36416; 70450; 80053; 80306; 80307; 81001; 82962; 84702; 85025; 85610; 85730; 93005; 96360; 99284; J7030